=== PATIENT | male | born 1955 | race African-American/Black ===

== ENCOUNTER 2020-08-20 17:32 | Emergency (ER) | payer MEDICARE, OTHER ==
[~2020-08-20] VITALS: Ht 177.8 cm; Wt 90.7 kg
[~2020-08-20 17:32] MED LIST: AMLO-213 PO; HYDR-3980 PO; IBUP-1957 PO
[2020-08-20 18:06] LABS: BASOPHILS # (AUTO) 0.1 K/uL (0.0-0.2); BASOPHILS % (AUTO) 0.9 % (0.0-2.0); EOSINOPHILS % (AUTO) 2.7 % (0.0-6.0); HEMATOCRIT 40 % (39-51); HEMOGLOBIN 13.2 g/dL (13.5-17.5); LYMPHOCYTES # (AUTO) 2.7 K/uL (0.8-4.8); LYMPHOCYTES % (AUTO) 26.8 % (20.0-44.0); MEAN CORPUSCULAR HGB CONC 33 g/dl (31.0-36.0); MEAN CORPUSCULAR VOLUME 96 fL (80-96); MONOCYTES # (AUTO) 1.6 K/uL (0.1-1.30); MONOCYTES % (AUTO) 15.6 % (2.0-12.0); NEUTROPHILS # (AUTO) 5.4 K/uL (1.8-8.9); PLATELET COUNT (AUTO) 282 K/uL (150-450); RED BLOOD CELL COUNT(AUTO) 4.14 MIL/uL (4.5-6.0)
[2020-08-20 18:19] LABS: ALANINE AMINOTRANSFERASE 63 U/L (12-78); ALBUMIN 3.4 g/dL (3.4-5.0); ALCOHOL, BLOOD 41 mg/dL (0-0); ALKALINE PHOSPHATASE 73 U/L (46-116); ASPARTATE AMINOTRANSFERASE 53 U/L (15-37); BILIRUBIN,DIRECT 0.1 mg/dL (0.0-0.2); BILIRUBIN,TOTAL 0.3 mg/dL (0.2-1.0); CARBON DIOXIDE 24 mmol/L (21-32); CHLORIDE 104 mmol/L (98-107); GLUCOSE 88 mg/dL (74-106); POTASSIUM 3.4 mmol/L (3.5-5.1); SODIUM SERUM 139 mmol/L (136-145); TOTAL PROTEIN, SERUM 9.1 g/dL (6.4-8.2); UREA NITROGEN, BLOOD 21 mg/dL (7-18)
[2020-08-20 18:20] LABS: ACETAMINOPHEN < 2 ug/ml (10-30)
[2020-08-20] MEDS ORDERED: AMLODIPINE BESYLATE 5 MG TABLET PO ONE (18:30)
--- NOTE | 2020-08-20 19:30 | NUR ---
PATIENT IN BED RESTING, A/O X 4, RR EVEN AND UNLABORED. NO SIGNS OF SOB NOTED, PT IN NO ACUTE DISTRESS. WILL CONTINUE TO MONITOR.
[2020-08-20 19:55] LABS: BAND % (MANUAL) 1 % (0.0-5.0); EOSINOPHILS % (MANUAL) 6 % (0-4); LYMPHOCYTES % (MANUAL) 36 % (16-48); MONOCYTES % (MANUAL) 11 % (0-11.0); NEUTROPHILS % (MANUAL) 46 (42-76)
[2020-08-20] MEDS ORDERED: AMLODIPINE BESYLATE 10 MG TABLET ONE (20:06)
--- NOTE | 2020-08-20 20:14 | NUR ---
URINE COLLECTED SENT TO LAB
[2020-08-20 20:23] LABS: BILIRUBIN,URINE SMALL (NEGATIVE); LEUKOCYTE ESTERASE ,URINE Negative (NEGATIVE); NITRITE, URINE Negative (NEGATIVE); PROTEIN,URINE 30 mg/dl (NEGATIVE); UGLUCOSE Negative (NEGATIVE)
[2020-08-20 20:25] LABS: COLOR,URINE DARK YELLOW (YELLOW)
[2020-08-20 20:40] LABS: BACTERIA,URINE Rare /HPF (None Seen); RBC,URINE NONE SEEN /HPF (0-2); SQUAMOUS EPITHELIAL CELL,UR Few /HPF (None Seen); WBC,URINE NONE SEEN /HPF (0-3)
--- NOTE | 2020-08-20 20:45 | NUR ---
COVID SWAB COLLECTED AND SENT TO LAB
--- NOTE | 2020-08-20 20:54 | NUR ---
FAXED CLINICALS AND ED NOTE TO [facility]. COVID RESULT PENDING
--- NOTE | 2020-08-20 21:32 | NUR ---
[facility] SHEE AND CLINICAL S WITH UPDATED LABS WERE FAXED TO [facility]
--- NOTE | 2020-08-20 23:24 | NUR ---
CALLED ART AT [facility] INTAKE FOR UPDATE. HE'LL CALL ME BACK WITH UPDATE
--- NOTE | 2020-08-21 02:59 | NUR ---
PT GOT ACCEPTED BY DR SIN AT [facility] AT [facility] FOR REPORT [phone]
--- NOTE | 2020-08-21 03:05 | NUR ---
[facility] TRANSP[facility]ATION ARRANGED FOR 45 MIN FROM NOW
--- NOTE | 2020-08-21 03:10 | NUR ---
REPORT GIVEN TO R[facility] FOR [facility], PATIENT GOING TO FACILITY.
[2020-08-21] MEDS ORDERED: CLONIDINE HCL 0.1 MG TABLET PO ONE (03:30)
[2020-08-21] MEDS ORDERED: CLONIDINE HCL 0.1 MG TABLET ONE (03:31)
[2020-08-21 03:32] VITALS: BP 154/91
--- NOTE | 2020-08-21 03:49 | NUR ---
[facility] TRANSPORT PICKED UP PATIENT. PATIENT IN NO ACUTE DISTRESS NOTED.
== END 2020-08-21 03:49 ==
LOC: ER 17:35
DX: R45.851 Suicidal ideations (principal); F17.210 Nicotine dependence, cigarettes, uncomplicated; F19.10 Other psychoactive substance abuse, uncomplicated; F25.9 Schizoaffective disorder, unspecified; Z88.8 Allergy status to other drugs, medicaments and biological substances; Z59.0 Homelessness; Z82.49 Family history of ischemic heart disease and other diseases of the circulatory system; I10 Essential (primary) hypertension; Z79.899 Other long term (current) drug therapy
CPT/HCPCS: 36415; 80048-TC; 80076-TC; 81001; 85025-TC; C9803; G0480